=== PATIENT | male | born 1985 | race African-American/Black ===

== ENCOUNTER 2021-10-21 21:56 | Emergency (ER) | payer SELFPAY ==
[~2021-10-21] VITALS: Ht 172.7 cm; Wt 120.0 kg
[2021-10-21] MEDS ORDERED: LIDOCAINE HCL 1% 20ML VIAL (Pyxis) INJ INFIL ONE (23:30)
[2021-10-21] MEDS ORDERED: AMOXICILLIN/POTASSIUM CLAVULANATE 875/125MG TAB PO ONE (23:30)
[2021-10-21] MEDS ORDERED: KETOROLAC 60MG/2ML VIAL IM ONE (23:30)
[2021-10-22] MEDS ORDERED: TETANUS, DIPHTHERIA, PERTUSSIS VAC/PF 0.5ML (>10YR OLD) IM ONE (00:15)
[2021-10-22] MEDS ORDERED: IBUP-2030 MT (06:07)
[2021-10-22] MEDS ORDERED: AMOX1TAB16 MT (06:07)
[2021-10-22 06:40] VITALS: BP 135/99
== END 2021-10-22 06:50 | disposition home or self-care (01) ==
LOC: ER 21:56
DX: S62.620B Displaced fracture of middle phalanx of right index finger, initial encounter for open fracture (principal); X58.XXXA Exposure to other specified factors, initial encounter; Y93.89 Activity, other specified; Y92.89 Other specified places as the place of occurrence of the external cause; Y99.8 Other external cause status; F12.10 Cannabis abuse, uncomplicated
CPT/HCPCS: 12002; 73130; 90471; 90715; 96372; 99285; J1885; J3490